=== PATIENT | female | born 1975 | race African-American/Black ===

== ENCOUNTER 2021-09-08 07:19 | Emergency (ER) | payer OTHER ==
[~2021-09-08 07:19] MED LIST: BUSPIRONE HCL15 MG PO; HYOSCYAMINE0.375 MG PO; ZESTORETIC 20-1 EACH PO
[2021-09-08 07:56] LABS: BASOPHIL 0.9 % (0-2); EOSINOPHIL 1.4 % (0-5); HCT 40.9 % (37.0-47.0); HGB 13.3 g/dl (12.5-16.0); LYMPHOCYTE 22.4 % (15-48); MCH 28.5 pg (25.0-31.0); MCHC 32.5 g/dL (32.0-36.0); MCV 87.8 fL (78.0-100.0); MONOCYTE 6.5 % (0-12); MPV 11.7 fL (6.0-9.5); NEUTROPHIL 68.4 % (41-80); NRBC 0; PLT 179 K/uL (150-400); RBC 4.66 M/uL (4.20-5.40); RDW 13.2 % (11.5-14.0); WBC 7.7 K/uL (4.0-10.5)
[2021-09-08 08:02] LABS: BILIRUBIN NEGATIVE (NEGATIVE); BLOOD 1+ Ery/uL (NEGATIVE); CLARITY CLEAR (CLEAR); COLOR YELLOW (YELLOW); GLUCOSE (U) NORMAL (NORMAL); LEUKOCYTES NEGATIVE Leu/uL (NEGATIVE); NITRITE NEGATIVE (NEGATIVE); PROTEIN NEGATIVE (NEGATIVE); SPECIFIC GRAVITY 1.025 (1.001-1.030); UROBILINOGEN 0.2 mg/dL (0.2-1.0)
[2021-09-08 08:19] LABS: BUN/CREAT RATIO (CALC) 9.9 RATIO; CREATININE 1.01 mg/dL (0.51-0.95); POTASSIUM 4.1 mmol/L (3.5-5.1)
[2021-09-08] MEDS ORDERED: FLOMAX 0.4 MG0.4 MG PO (08:24)
[2021-09-08] MEDS ORDERED: NORCO 5/3251 EACH PO (08:24)
== END 2021-09-08 08:35 | disposition home or self-care (01) ==
LOC: FER 07:19
PROVIDERS: Emergency Medicine
DX: N13.2 Hydronephrosis with renal and ureteral calculous obstruction (principal); I10 Essential (primary) hypertension
CPT/HCPCS: 36415; 80048; 81001; 85025; 96372; J1885; J2405